=== PATIENT | male | born 1965 ===

== ENCOUNTER 2016-10-18 21:33 | Emergency (ER) | payer OTHER ==
[2016-10-18 21:43] VITALS: BMI 36.5
[2016-10-18 21:46] VITALS: RESP 18; TEMP 98.8
[2016-10-18] MEDS ORDERED: Multivitamin (MVI) 10 ML, Thiamine 100 MG, Folic Acid 1 MG in Sodium Chloride 0.9% 1,00... IV ONE (22:12)
--- NOTE | 2016-10-18 22:17 | ED PDOC ---
Arrival/HPI - General Historian: Patient - General Chief Complaint: Alcohol Ingestion Time Seen by Provider: 10/18/16 21:47 - History of Present Illness Narrative History of Present Illness (Text): 10/18/16 22:14 50 y/o male, pmh including htn, nkda, bib family c/o etoh intoxication. As per , the patient has been drinking on and off for 1 week, no history of alcohol abuse, never been detox, stated that he gets stress out very easily. Pt. and request to have the psychiatric evaluation as he feels depressed lately. As per patient and , he has no homicidal or suicidal ideation, no auditory or visual hallucination, no night sweat, no numbness or tingling, no other medical or psychological complaints. (Geovanni Aldana) Past Medical History - Provider Review Nursing Documentation Reviewed: Yes - Infectious Disease Hx of Infectious Diseases: None - Cardiac Hx Hypertension: Yes - Psychiatric Hx Substance Use: No - Anesthesia Hx Anesthesia: No Family/Social History - Physician Review Nursing Documentation Reviewed: Yes Family/Social History: Unknown Family HX Smoking Status: Current Some Days Smoker Hx Alcohol Use: Yes Frequency of alcohol use: Daily Hx Substance Use: No Allergies/Home Meds Allergies/Adverse Reactions: Allergies No Known Allergies Allergy (Verified 10/18/16 21:42) Home Medications: Home Meds Medication Instructions Recorded Confirmed Lisinopril [Zestril] 1 tab PO DAILY 10/18/16 10/18/16 Review of Systems - Review of Systems Constitutional: absent: Fatigue, Fevers Eyes: absent: Vision Changes ENT: absent: Hearing Changes Respiratory: absent: SOB, Cough Cardiovascular: absent: Chest Pain Gastrointestinal: absent: Abdominal Pain, Nausea, Vomiting Genitourinary Male: absent: Dysuria, Frequency Musculoskeletal: absent: Arthralgias Skin: absent: Rash Neurological: absent: Headache Endocrine: absent: Diaphoresis Hemo/Lymphatic: absent: Adenopathy, Easy Bleeding Psychiatric: Depression. absent: Anxiety, Suicidal Ideation Physical Exam Vital Signs Reviewed: Yes Temperature: Afebrile Blood Pressure: Hypertensive Pulse: Tachycardic Respiratory Rate: Normal Appearance: Positive for: Well-Appearing, Non-Toxic, Comfortable Pain Distress: None Mental Status: Positive for: Alert and Oriented X 3 - Systems Exam Head: Present: Atraumatic, Normocephalic Pupils: Present: PERRL Extroacular Muscles: Present: EOMI Conjunctiva: Present: Normal Ears: Present: NORMAL TM, Normal Canal. No: Erythema Mouth: Present: Moist Mucous Membranes Pharnyx: No: ERYTHEMA, EXUDATE, TONSILS ENLARGED, Uvular Deviation, Soft Palate/ Uvular Edema Nose (External): Present: Atraumatic. No: Abrasion, Contusion, Laceration, Lesions Nose (Internal): Present: Normal Inspection, No Active Bleeding. No: Rhinorrhea , Septal Hematoma, Epistaxis Neck: Present: Normal Range of Motion, Trachea Midline. No: Meningeal Signs, MIDLINE TENDERNESS, Paraspinal Tenderness, Lymphadenopathy Respiratory/Chest: Present: Clear to Auscultation, Good Air Exchange. No: Respiratory Distress, Accessory Muscle Use Cardiovascular: Present: Regular Rate and Rhythm, Normal S1, S2. No: Murmurs Abdomen: Present: Normal Bowel Sounds. No: Tenderness, Distention, Peritoneal Signs, Rebound, Guarding Back: Present: Normal Inspection Upper Extremity: Present: Normal Inspection. No: Cyanosis, Edema Lower Extremity: Present: Normal Inspection. No: Edema Neurological: Present: GCS=15, Motor Func Grossly Intact, Memory Normal, Other ( no tongue fasiculation, no hand tremors. ) Skin: Present: Warm, Dry, Normal Color. No: Rashes Psychiatric: Present: Alert, Oriented x 3, Normal Insight, Normal Concentration Vital Signs Temp Pulse Resp BP Pulse Ox 10/18/16 21:45 98.8 F 112 H 18 142/95 H 96 Medical Decision Making - Lab Interpretations I have reviewed the lab results: Yes Interpretation: Abnormal lab values (elevation of LFT, alcohol 403) ED Course and Treatment: I was available for consultation during PA evaluation. The chart reviewed by me , and I agree with disposition. The documented history was done by the physician hand fur cleaner. The documented physical exam was done by the physician hand fur cleaner. The documented procedures were done by the physician hand fur cleaner. (Chinedu Walls) 10/18/16 22:13 -labs/ua/uds -chest x-ray -ekg -IV banana bag -observe and reassess 10/18/16 23:42 -Chest x-ray show no active disease -Labs are non-significant except LFT elevation likely due to the alcohol drinking with alcohol 403 -IV banana fluid is done, alcohol level 403 which he won't be sobered for 12 hours. I discussed labs and the radiology results with the and family, they wanna to take the patient home to sleep and wait for him to wake up to determine if he would like to have further evaluation. Family and the feels comfortable taking the patient home and they will take full responsibilities for the patient. Pt. doesn't wanna sleep in the ER either. Pt. has no medical or psychological complaints. I offered to keep the patient in the ER until he is sobered but the patient/family declined. -Pt. has no abdominal tenderness or guarding. -Discharge home with education on follow up with your own pmd within 2 days, return to the ER for any new or worsening signs or symptoms. (Geovanni Aldana) - Lab Interpretations Lab Results: 10/18/16 22:30 10/18/16 22:30 Lab Results 10/18/16 22:30: Alcohol, Quantitative 403 H* 10/18/16 22:30: Salicylates < 1 L, Acetaminophen < 10.0 L 10/18/16 22:30: Sodium 146, Potassium 3.8, Chloride 100, Carbon Dioxide 29, Anion Gap 21 H, BUN 9, Creatinine 0.7, Est GFR ( Amer) > 60, Est GFR (Non -Af Amer) > 60, Random Glucose 189 H, Calcium 9.2, Magnesium 1.8, Total Bilirubin 0.5, AST 99 H, ALT 122 H, Alkaline Phosphatase 64, Total Protein 7.7, Albumin 4.6, Globulin 3.2, Albumin/Globulin Ratio 1.4 10/18/16 22:30: WBC 4.1 L, RBC 5.67, Hgb 17.0, Hct 49.0, MCV 86.4, MCH 30.0, MCHC 34.7, RDW 15.5 H, Plt Count 208, MPV 8.4, Neutrophils % (Manual) Pending, Lymphocytes % (Manual) Pending, Monocytes % (Manual) Pending - RAD Interpretation Radiology Orders: 10/18/16 22:12 CHEST PORTABLE [RAD] Stat - Medication Orders Current Medication Orders: Discontinued Medications Multivitamins/Vitamin C 10 ml/Thiamine HCl 100 mg/ Folic Acid 1 mg/ Sodium Chloride 1,011.2 mls @ 1,000 mls/hr IV .[id number] ONE Stop: 10/18/16 23:12 Last Admin: 10/18/16 22:52 Dose: 1,000 mls/hr - PA / VICE PROVOST / Resident Statement / has reviewed & agrees with the documentation as recorded. Disposition/Present on Arrival - Present on Arrival Any Indicators Present on Arrival: No History of DVT/PE: No History of Uncontrolled Diabetes: No Urinary Catheter: No History of Decub. Ulcer: No History Surgical Site Infection Following: None - Disposition Have Diagnosis and Disposition been Completed?: Yes Disposition Time: 23:45 Patient Plan: Discharge - Disposition Diagnosis: Alcohol intoxication Disposition: HOME/ ROUTINE Patient Problems: Current Active Problems Problem Status Onset Alcohol intoxication Acute Condition: GOOD Additional Instructions: Discharge home with education on follow up with your own pmd within 2 days, return to the ER for any new or worsening signs or symptoms. Referrals: [facility] [[facility]] - [place] [facility] [place] - Follow up with primary Forms: WORK NOTE
[2016-10-18 23:03] LABS: MEAN CELL VOLUME 86.4 fL (80.0-105.0); MEAN CORPUSCULAR HGB CONC 34.7 g/dl (31.0-37.0); MEAN PLATELET VOLUME 8.4 fl (7.0-11.0); PLATELET COUNT 208 10^3/uL (120.0-450.0); RED CELL DISTRIBUTION WIDTH 15.5 % (11.5-14.5); WHITE BLOOD COUNT 4.1 10^3/ul (4.5-11.0)
[2016-10-18 23:05] LABS: ALB/GLOB RATIO 1.4 (1.1-1.8); ALKALINE PHOSPHATASE 64 U/L (38-133); ALT/SGPT 122 U/L (7-56); AST/SGOT 99 U/L (15-59); BILIRUBIN,TOTAL 0.5 mg/dL (0.2-1.3); BLOOD UREA NITROGEN 9 mg/dL (7-21); CALCIUM 9.2 mg/dL (8.4-10.5); CARBON DIOXIDE 29 mmol/L (21-33); CHLORIDE 100 mmol/L (98-107); GFR AFRICAN-AMERICAN > 60; GLUCOSE,RANDOM 189 mg/dL (70-110); MAGNESIUM 1.8 mg/dL (1.7-2.2); POTASSIUM 3.8 mmol/L (3.6-5.0); SODIUM 146 mmol/L (132-148); TOTAL PROTEIN 7.7 g/dL (5.8-8.3)
[2016-10-18 23:06] LABS: ADD MANUAL DIFF? YES
[2016-10-18 23:54] VITALS: BP 129/90; PULSE 88; O2SAT 98
[2016-10-19 00:22] LABS: ATYPICAL LYMPHOCYTE 4 % (0.0-0.0); NEUTROPHIL 45 % (50.0-70.0); PLATELET ESTIMATE NORMAL (NORMAL)
--- NOTE | 2016-10-19 09:48 | RAD ---
HISTORY: medical clearance COMPARISON: No prior. FINDINGS: LUNGS: No active pulmonary disease. PLEURA: No significant pleural effusion identified, no pneumothorax apparent. CARDIOVASCULAR: Normal. OSSEOUS STRUCTURES: No significant abnormalities. VISUALIZED UPPER ABDOMEN: Normal. OTHER FINDINGS: None. IMPRESSION: No active disease.
== END 2016-10-18 23:55 | disposition home or self-care (01) ==
LOC: ED 21:33
DX: F10.129 Alcohol abuse with intoxication, unspecified (principal); Y90.8 Blood alcohol level of 240 mg/100 ml or more
CPT/HCPCS: 71010; 80053; 80320; 80329; 83735; 85025; 96360; 99283; J3411; J7040